=== PATIENT | male | born 1990 | race Hispanic/Latino ===

== ENCOUNTER 2021-10-27 13:18 | Emergency (ER) | payer SELFPAY ==
[2021-10-27] MEDS ORDERED: Ketorolac Tromethamine 30 MG/ML VIAL ONE (15:12)
[2021-10-27] MEDS ORDERED: Dexamethasone 10 MG/ML VIAL ONE (15:17)
== END 2021-10-27 15:52 | disposition home or self-care (01) ==
LOC: ERS 13:18
DX: M54.50 Low back pain, unspecified (principal)
CPT/HCPCS: 96372; 99283; J1100; J1885